=== PATIENT | female | born 1990 | race Caucasian/White ===

== ENCOUNTER 2020-10-20 22:04 | Emergency (ER) | payer OTHER ==
[2020-10-20 23:45] LABS: BASOPHIL 0.5 % (0-2); EOSINOPHIL 2.5 % (0-5); HCT 28.6 % (37.0-47.0); HGB 9.3 g/dl (12.5-16.0); MCHC 32.5 g/dL (32.0-36.0); MCV 89.1 fL (78.0-100.0); MONOCYTE 5.9 % (0-12); MPV 9.8 fL (6.0-9.5); NEUTROPHIL 57.5 % (41-80); NRBC 0; PLT 269 K/uL (150-400); RBC 3.21 M/uL (4.20-5.40); RDW 13.6 % (11.5-14.0); WBC 10.7 K/uL (4.0-10.5)
[2020-10-21] LABS: ALBUMIN 2.4 g/dL (3.4-5.0); BILIRUBIN - TOTAL 0.2 mg/dL (0.2-1.0); BUN/CREAT RATIO (CALC) 16.5 RATIO; CREATININE 0.79 mg/dL (0.51-0.95); POTASSIUM 3.4 mmol/L (3.5-5.1); TOTAL PROTEIN 6.4 g/dL (6.4-8.2)
[2020-10-21] MEDS ORDERED: ADALAT CC30 MG PO (01:32)
== END 2020-10-21 01:45 | disposition home or self-care (01) ==
LOC: FER 22:04
PROVIDERS: Emergency Medicine Emergency Medical Services
DX: I10 Essential (primary) hypertension (principal); I49.8 Other specified cardiac arrhythmias
CPT/HCPCS: 36415; 71045; 80053; 85025; 86850; 86900; 86901; 93005; J7030